=== PATIENT | female | born 1980 | race Caucasian/White ===

== ENCOUNTER → 2020-05-22 | Outpatient (CLI) | payer OTHER ==
--- NOTE | 2020-05-22 17:50 | RAD ---
PROCEDURE: XR EXAM OF ANKLE_RIGHT 3VIEWS STUDY DATE: 05/22/2020 CLINICAL INDICATION / HISTORY: Reason: RIGHT ANKLE PAIN / Spl. Instructions: / History: . TECHNIQUE: Right ankle 3 views. COMPARISON: None FINDINGS: The ankle mortise is approximated, and the talar dome is unremarkable. The joint space widt hs are maintained. Tiny ossific densities are present abutting the tip of the medial malleolus and me dial talus. These could reflect tiny impaction or avulsion fracture fragments. Otherwise, no fracture or dislocation is identified. Mild diffuse soft tissue swelling is appreciated. IMPRESSION: Evidence of a right ankle sprain with possible tiny punctate impaction or avulsion fractu res of the medial malleolus. Correlate with clinical exam. Otherwise no no acute osseous abnormality. Electronically signed by: Vibha David MD (05/22/2020 5:47 PM) [id number]
== END ==
LOC: RAD 13:01
PROVIDERS: ATTEND Physician Assistant
DX: S93.401A Sprain of unspecified ligament of right ankle, initial encounter (principal); X58.XXXA Exposure to other specified factors, initial encounter; Y92.89 Other specified places as the place of occurrence of the external cause; Y93.89 Activity, other specified; Y99.8 Other external cause status
CPT/HCPCS: 73610